=== PATIENT | female | born 1975 | race American Indian/Alaskan Native ===

== ENCOUNTER 2016-12-05 08:10 | Outpatient (CLI) | payer OTHER ==
--- NOTE | 2016-12-05 09:07 | Mammography Report ---
BILATERAL DIGITAL DIAGNOSTIC MAMMOGRAM with CAD: 12/05/16 08:10:00 CLINICAL: Family history of breast cancer and bilateral mastodynia. COMPARISON:02/01/14 FINDINGS: There are bilateral scattered areas of fibroglandular density.No mass, architectural distortion or suspicious calcifications. IMPRESSION: Negative mammogram. BI-RADS CATEGORY: 1 - - Negative RECOMMENDATION: Routine mammographic screening in one year. ACR BI-RADS MAMMOGRAPHIC CODES: 0 = Needs additional imaging evaluation; 1 = Negative; 2 = Benign; 3 = Probably benign; 4 = Suspicious; 5 = Malignant; 6 = Known biopsy-proven malignancy COMMENT: 1. Dense breast tissue, i.e., adenosis, fibrocystic changes, etc., may obscure an underlying neoplasm. 2. Approximately 10% of cancers are not detected with mammography. 3. A negative mammography report should not delay biopsy if a clinically suspicious mass is present. COMMENT: Patient follow-up letters are generated by our Drive application.
== END 2016-12-05 08:11 | disposition home or self-care (01) ==
LOC: MAMMO 08:10
PROVIDERS: ATTEND Advanced Practice Midwife
DX: N64.4 Mastodynia (principal); Z80.3 Family history of malignant neoplasm of breast
CPT/HCPCS: 77066; G0204

== ENCOUNTER 2017-05-29 03:29 | Emergency (ER) | payer OTHER ==
[2017-05-29 03:44] VITALS: BP 127/82
--- NOTE | 2017-05-29 04:21 | XRay Report ---
FINAL REPORT EXAM: XR ELBOW 2V RT HISTORY: s/p fall right elbow swelling TECHNIQUE: AP and lateral views of the right elbow were obtained. FINDINGS: There are no skeletal or soft tissue abnormalities. IMPRESSION: Normal exam.
== END 2017-05-29 03:45 | disposition left against medical advice (07) ==
LOC: ED 03:29
DX: M25.521 Pain in right elbow (principal); Z53.21 Procedure and treatment not carried out due to patient leaving prior to being seen by health care provider